=== PATIENT | female | born 1950 | race Caucasian/White ===

== ENCOUNTER 2023-05-09 14:17 | Emergency (ER) | payer OTHER, MEDICAID ==
[~2023-05-09] VITALS: Ht 154.9 cm; Wt 52.2 kg
[2023-05-09 14:30] VITALS: BP_SYST 115; PULSE 103; RESP 22; TEMP 98.3; O2SAT 98
[2023-05-09 15:42] LABS: BASOPHILS % (AUTO) 0.5 % (0.0-2.0); EOSINOPHILS % (AUTO) 0.8 % (0.0-4.0); HEMATOCRIT 35.9 % (36-48); HEMOGLOBIN 11.6 g/dL (12.0-16.0); LYMPHOCYTES # (AUTO) 1.3 K/uL (1.0-5.5); LYMPHOCYTES % (AUTO) 20.4 % (20.5-51.5); MEAN CORPUSCULAR HEMOGLOBIN 29 pg (27-31); MEAN CORPUSCULAR HGB CONC 32 % (32-36); MEAN CORPUSCULAR VOLUME 89 fL (79.0-98.0); MONOCYTES # (AUTO) 0.5 K/uL (0.0-1.0); MONOCYTES % (AUTO) 8.4 % (1.7-9.3); NEUTROPHILS # (AUTO) 4.4 K/uL (1.8-7.7); NEUTROPHILS % (AUTO) 69.9 % (40.0-70.0); PLATELET COUNT (AUTO) 255 K/uL (130-430); RED BLOOD CELL COUNT(AUTO) 4.02 MIL/uL (4.2-6.2); RED CELL DISTRIBUTION WIDTH 13.9 % (9.0-15.0); WHITE BLOOD COUNT (AUTO) 6.3 K/uL (4.8-10.8)
[2023-05-09 16:00] LABS: ANION GAP 9 (5-15); CALCIUM 9.2 mg/dL (8.4-11.0); CARBON DIOXIDE 25 mmol/L (23-29); CHLORIDE 100 mmol/L (98-107); CREATININE 0.82 mg/dL (0.55-1.30); GLUCOSE 157 mg/dL (74-106); POTASSIUM 3.7 mmol/L (3.5-5.1); SODIUM SERUM 134 mmol/L (136-145); UREA NITROGEN, BLOOD 16 mg/dL (8-21)
[2023-05-09 16:05] LABS: ALANINE AMINOTRANSFERASE 29 U/L (12-78); ALBUMIN 3.4 g/dL (3.4-4.8); ASPARTATE AMINOTRANSFERASE 24 U/L (10-37); BILIRUBIN,DIRECT 0.2 mg/dL (0.0-0.3); LIPASE 66 U/L (16-77); TOTAL BILIRUBIN 0.3 mg/dL (0.0-1.0); TOTAL PROTEIN, SERUM 6.9 g/dL (6.4-8.3)
[2023-05-09 16:19] LABS: BILIRUBIN,URINE NEGATIVE (NEGATIVE); CLARITY/URINE CLEAR (CLEAR); COLOR,URINE YELLOW (YELLOW); GLUCOSE,URINE NEGATIVE (NEGATIVE); KETONES,URINE NEGATIVE (NEGATIVE); LEUKOCYTE ESTERASE ,URINE NEGATIVE (NEGATIVE); NITRITE, URINE NEGATIVE (NEGATIVE); PROTEIN URINE NEGATIVE (NEGATIVE); UROBILINOGEN,URINE 0.2 (0.2-1.0)
[2023-05-09 16:22] LABS: BLOOD, URINE TRACE (NEGATIVE)
[2023-05-09 16:26] LABS: BACTERIA,URINE RARE /HPF (None Seen); MUCUS,URINE None Seen /LPF (None Seen); RBC,URINE 0-3 /HPF (0-3); WBC,URINE 0-3 /HPF (0-3); YEAST,URINE Few /HPF (None Seen)
[2023-05-09] MEDS ORDERED: NACL 0.9% 1,000 ML IV ONE (20:45)
[2023-05-09 21:00] VITALS: BP_SYST 132; PULSE 76; RESP 18; TEMP 97.4; O2SAT 100
[2023-05-09] MEDS ORDERED: POLY119P2 PO (21:15)
[2023-05-09] MEDS ORDERED: METR-154 PO (21:15)
[2023-05-09] MEDS ORDERED: CIPR500T5 PO (21:15)
[2023-05-09] MEDS ORDERED: metroNIDAZOLE 500 MG TABLET PO ONE (21:30)
[2023-05-09] MEDS ORDERED: CIPROFLOXACIN HCL 500 MG TABLET PO ONE (21:30)
== END 2023-05-09 22:21 | disposition home or self-care (01) ==
LOC: SED 14:17
DX: K52.9 Noninfective gastroenteritis and colitis, unspecified (principal); Z79.899 Other long term (current) drug therapy
CPT/HCPCS: 99285; 74177; 96360; 80076; 80048; 81001; 83690; 85025; 36415; 76376; Q9967; J7030; 81000; 81015

== ENCOUNTER 2024-03-26 12:59 | Outpatient (CLI) | payer OTHER, MEDICAID ==
[~2024-03-26 12:59] MED LIST: CIPR500T5 PO; METR-154 PO; POLY119P2 PO
[2024-03-26] MEDS ORDERED: DIATR MEGLU/DIATRIZ SOD 30 ML SOLUTION PO ONE (13:28)
== END 2024-03-26 19:38 | disposition home or self-care (01) ==
LOC: SCT 12:59
DX: K57.30 Diverticulosis of large intestine without perforation or abscess without bleeding (principal); R10.9 Unspecified abdominal pain; R19.4 Change in bowel habit; I70.0 Atherosclerosis of aorta; I51.7 Cardiomegaly; Z90.710 Acquired absence of both cervix and uterus
CPT/HCPCS: Q9964; Q9967